=== PATIENT | male | born 1975 | race Two or more races ===

== ENCOUNTER 2019-08-02 20:11 | Emergency (ER) | payer SELFPAY ==
[~2019-08-02] VITALS: Ht 170.2 cm; Wt 86.2 kg
[2019-08-02 20:32] VITALS: BP 141/93
== END 2019-08-02 20:40 | disposition home or self-care (01) ==
LOC: ER 20:15
DX: F10.129 Alcohol abuse with intoxication, unspecified (principal); Y90.9 Presence of alcohol in blood, level not specified